=== PATIENT | male | born 1985 | race Caucasian/White ===

== ENCOUNTER 2023-04-15 15:21 | Outpatient (REF) | payer SELFPAY ==
[2023-04-15 16:51] LABS: ALT 29 U/L (16-63); AST 24 U/L (15-37); Albumin 3.8 g/dL (3.4-5.0); Alkaline Phosphatase 94 U/L (46-116); Anion Gap 9.2 mmol/L (3-11); BUN 16 mg/dL (7-18); Bilirubin, Total 0.6 mg/dL (0.2-1.0); CO2 26.8 mmol/L (21.0-32.0); CREATININE 1.3 mg/dL (0.70-1.30); Calcium 9.3 mg/dL (8.5-10.1); Calculated LDL 157 mg/dL (<100); Chloride 104 mmol/L (98-107); Cholesterol 240 mg/dL (<200); Estimated GFR 71.67 (mL/min/1.73m2); Glucose 99 mg/dL (74-106); HDL Cholesterol 66 mg/dL (40-60); Potassium 4.7 mmol/L (3.5-5.1); Sodium 140 mmol/L (136-145); Total Protein 7.8 g/dL (6.4-8.2); Triglyceride 89 mg/dL (<150)
== END 2023-04-15 15:22 | disposition home or self-care (01) ==
LOC: NCHCN 15:21
PROVIDERS: PCP Registered Nurse; Visit Provider Family Medicine
DX: Z00.00 Encounter for general adult medical examination without abnormal findings (principal); I10 Essential (primary) hypertension; Z13.220 Encounter for screening for lipoid disorders
CPT/HCPCS: 80053; 80061; 84443

== ENCOUNTER 2024-05-27 12:32 | Outpatient (REF) | payer SELFPAY ==
[2024-05-27 18:34] LABS: HIV-1/2 Ag & Ab Screen Negative (Negative)
[2024-05-27 18:43] LABS: Hepatitis C Ab w Rflx HCV PCR Negative (Negative)
[2024-05-30 11:32] LABS: Syphilis Serology (RPR) Negative (Negative)
[2024-05-30 12:32] LABS: Chlamydia Result Negative (Negative); GC Result Negative (Negative)
== END 2024-05-27 12:33 | disposition home or self-care (01) ==
LOC: NCHCN 12:32
PROVIDERS: PCP Registered Nurse; Visit Provider Family Medicine
DX: Z20.2 Contact with and (suspected) exposure to infections with a predominantly sexual mode of transmission (principal); Z11.3 Encounter for screening for infections with a predominantly sexual mode of transmission
CPT/HCPCS: 86803; 87389; 87491; 87591; 86592

== ENCOUNTER 2025-01-13 12:52 | Outpatient (REF) | payer SELFPAY ==
[2025-01-14 09:16] LABS: HIV-1/2 Ag & Ab Screen Negative (Negative)
[2025-01-16 10:18] LABS: Hepatitis C Ab w Rflx HCV PCR Negative (Negative); Syphilis Serology (RPR) Negative (Negative)
[2025-01-16 11:53] LABS: Hep B Core Antibody Negative (Negative)
[2025-01-16 13:01] LABS: Chlamydia Result Negative (Negative); GC Result Negative (Negative)
== END 2025-01-13 12:53 | disposition home or self-care (01) ==
LOC: NCHCN 12:52
PROVIDERS: PCP Registered Nurse; Visit Provider Physician Assistant
DX: Z11.3 Encounter for screening for infections with a predominantly sexual mode of transmission (principal)
CPT/HCPCS: 86704; 86803; 87389; 87491; 87591; 86592